=== PATIENT | male | born 1945 | race Caucasian/White ===

== ENCOUNTER 2017-02-23 11:28 | Inpatient (IN) | payer MEDICARE, OTHER ==
--- NOTE | ~2017-02-23 | OP ---
Record Of Operation [facility] [address] [place]. [address] NAME: HENNY VALENCIA : 45 STATUS : ADM IN PAT#: [id number] AGE: 71 ADM/REG DATE : 02/23/17 MR#: [id number] REPORT SERV DATE: 02/23/17 DICTATED BY: OSMEL METCALF JR. DATE: 02/23/17 REPORT STATUS : Draft TRANSCRIBED BY: MODL DATE: 02/23/17 DATE OF PROCEDURE: 02/23/2017 PREOPERATIVE DIAGNOSIS: Right carotid stenosis, right amaurosis fugax. POSTOPERATIVE DIAGNOSIS: Right carotid stenosis, right amaurosis fugax. OPERATION: Right carotid endarterectomy with bovine patch angioplasty. SURGEON: Osmel Metcalf M.D. VASCULAR FELLOW: Allison Hunter MD HISTORY: This is a 71-year-old white male, who had a single episode of amaurosis fugax in the right eye within the last five days. It lasted 10 minutes. He was found to have a very tight right carotid stenosis. DESCRIPTION OF PROCEDURE: The patient was placed on the operating room table. He underwent general endotracheal anesthetic. The right side of the neck was prepped and draped in the usual sterile manner. Standard right-sided sternocleidomastoid incision was made. Dissection was carried down through the facial vein. It was clamped, cut, and tied. The underlying carotid bifurcation was then identified. The patient was given 4000 units of heparin early during the case to try to prevent potential embolization. We had a length in the incision in a superior fashion with several different times to provide distal exposure of the ICA, since it was obvious that the disease in the artery was going very high. This also necessitated mobilization of the hypoglossal nerve. All branches of carotid artery were then clamped. Arteriotomy was then done between the CCA and the SCA. The arteriotomy had to be taken so hot, and with all the debris in the artery, I did not think it was safe to place a shunt. There was excellent back bleeding nevertheless. Endarterectomy started in the area of the CCA, it was carried up to the ECA, and then to the ICA with the plaque feathered nicely. Fine forceps was used to get all smooth muscle floaters. A piece of bovine pericardial patch material was sewn to the arteriotomy as an onlay patch using a running 6-0 Prolene suture. Before finishing the suture line, blood was allowed to bleed antegrade and retrograde with no clot being seen. The suture line was then finished. Blood was allowed to run into the ECA first. There were good Doppler signals distally. Heparin was not reversed. There was no need for drain. The neck was closed in layers with 3-0 Vicryl deep and 4-0 Vicryl in the skin. The patient tolerated the procedure well and taken back to recovery room in fair condition. There were no intraoperative complications. ESTIMATED BLOOD LOSS: 150 mL. DF/MODL Record Of Operation [place] [id number] [facility] [place]. [address] NAME: HENNY VALENCIA : 45 STATUS : ADM IN [facility]#: [id number] AGE: 71 ADM/REG DATE : 02/23/17 MR#: [id number] REPORT SERV DATE: 02/23/17 DICTATED BY: OSMEL METCALF JR. DATE: 02/23/17 REPORT STATUS : Draft TRANSCRIBED BY: MODL DATE: 02/23/17 Osmel Metcalf Jr., M.D. / [id number] CC: Osmel Metcalf Jr., M.D.
[~2017-02-23 11:28] MED LIST: ASAB PO; ATV.5 PO; COMBIVENT RESPIM4 GM; DORYX100 MG PO; DUONEB INH; L20 PO; LIPITOR20 PO; MEDROLPAK4 PO; MUCINEX600 MG PO; PULRESP.5 INH; STERAPRED DS10 MG PO; TESSALON200 MG PO; ZITHROMAX500 MG PO
[2017-02-23 12:31] LABS: BASOPHILS 0.6 %; BASOPHILS ABSOLUTE 0.04 10/3/uL (0.0-0.16); EOSINOPHILS 6.3 %; EOSINOPHILS ABSOLUTE 0.44 10/3/uL (0.0-0.53); HEMATOCRIT 42.9 % (40.0-51.0); HEMOGLOBIN 15.2 g/dL (13.6-17.8); IMMATURE GRANULOCYTES 0.1 %; IMMATURE GRANULOCYTES ABSOLUTE 0.01 10/3/uL (0.0-0.11); LYMPHOCYTES 23.7 %; LYMPHOCYTES ABSOLUTE 1.66 10/3/uL (0.67-4.30); MANUAL DIFF NO %; MEAN CORPUS HGB CONC 35.4 g/dL (32.0-36.0); MEAN CORPUSCULAR HEMOGLOB 32.1 pg (26.0-34.0); MEAN CORPUSCULAR VOLUME 90.7 fL (80-100); MEAN PLATELET VOLUME 9.2 fL (9.2-13.0); MONOCYTES ABSOLUTE 0.63 10/3/uL (0.21-1.20); NEUTROPHILS 60.3 %; NEUTROPHILS ABSOLUTE 4.23 10/3/uL (2.02-8.40); PLATELET COUNT 362 10/3/uL (150-400); RBC DISTRIBUTION WIDTH 12.8 % (12.0-16.0); RED CELL COUNT 4.73 10/6/uL (4.7-6.1)
[2017-02-23 12:37] LABS: INTERNATIONAL NORMAL RATI 1.1 UNITS (-); PROTIME (NOT ORD) 14.2 SEC (12.0-14.5)
[2017-02-23 12:40] LABS: A/G RATIO 1.1 (0.7-1.9); ALBUMIN 3.7 G/DL (3.5-5.0); ALKALINE PHOSPHATASE 56 U/L (45-117); CALCIUM, SERUM 9.3 MG/DL (8.5-10.4); CHLORIDE, SERUM 107 MMOL/L (96-112); CO2 (CARBON DIOXIDE) 31 MMOL/L (24-34); CREATININE 0.84 MG/DL (0.70-1.30); GFR AFRICAN AMERICAN 102 ML/MIN (>=60); GFR NON AFRICAN AMERICAN 88 ML/MIN (>=60); GLOBULIN 3.4 G/DL (2.5-4.1); POTASSIUM, SERUM 4.3 MMOL/L (3.5-5.3); SGOT(AST) 32 U/L (5-40); SGPT(ALT) 42 U/L (5-65); SODIUM, SERUM 141 MMOL/L (135-148); TOTAL BILIRUBIN 0.8 MG/DL (0-1.2); TOTAL PROTEIN 7.1 G/DL (6.0-8.5)
[2017-02-23 12:41] LABS: BUN (BLOOD UREA NITROGEN) 16 MG/DL (6-23); GLUCOSE, SERUM 96 MG/DL (60-99)
[2017-02-23] MEDS ORDERED: PRAVAC PO (14:15)
[2017-02-23] MEDS ORDERED: ALTA5 PO (14:16)
[2017-02-23] MEDS ORDERED: BARLEY GRASS (14:20)
[2017-02-23] MEDS ORDERED: PROBIOTIC (14:21)
[2017-02-23 18:34] LABS: HEMATOCRIT 40.7 % (40.0-51.0)
[2017-02-24] MEDS ORDERED: PCET PO (10:43)
== END 2017-02-24 13:50 | disposition home or self-care (01) | DRG 38 ==
LOC: SDC/OF 11:28 → 2SO 18:46
PROVIDERS: Surgery
PROC: 03UK0KZ Supplement Right Internal Carotid Artery with Nonautologous Tissue Substitute, Open Approach (ICD-10-PCS; 2017-02-23)
PROC: 03CK0Z6 (ICD-10-PCS; principal; 2017-02-23 14:15)
DX: I65.21 Occlusion and stenosis of right carotid artery (principal); G45.3 Amaurosis fugax; J44.9 Chronic obstructive pulmonary disease, unspecified; R00.1 Bradycardia, unspecified; I10 Essential (primary) hypertension; E78.00 Pure hypercholesterolemia, unspecified; F41.9 Anxiety disorder, unspecified
CPT/HCPCS: 80053; 85014; 85018; 85025; 85610; 85730; 87641; 88304; 88311; A9270-GY; C1768; J0690; J2370; J2405; J2710; J3010